=== PATIENT | female | born 1965 | race American Indian/Alaskan Native ===

== ENCOUNTER 2017-02-14 19:20 | Emergency (ER) | payer MEDICARE ==
[2017-02-14 21:32] LABS: Basophils % (Auto) 0.6 % (0.0-1.8); Eosinophils % (Auto) 1.3 % (0.0-4.3); Hematocrit 40.1 % (30.3-42.9); Hemoglobin 13.4 gm/dl (10.1-14.3); Mean Corpuscular HGB Conc 34 % (30-34); Mean Corpuscular Hemoglobin 31 pg (28-32); Mean Corpuscular Volume 91 fl (79-97); Platelet Count 225 K/mm3 (140-440); Red Cell Distribution Width 13.7 % (13.2-15.2); White Blood Count 4.1 K/mm3 (4.5-11.0)
[2017-02-14 21:43] LABS: BUN/Creatinine Ratio 28; Blood Urea Nitrogen 14 mg/dL (7-17); Calcium 9.8 mg/dL (8.4-10.2); Carbon Dioxide 33 mmol/L (22-30); Creatine Kinase 53 units/L (30-135); Glucose 99 mg/dL (65-100)
[2017-02-14 21:43] LABS: Bilirubin,Urine SM (Negative); Blood,Urine NEG (Negative); Ketones,Urine TR mg/dL (Negative); Leukocyte Esterase,Urine TR (Negative); Mucus,Urine 3+ /HPF; Nitrite,Urine NEG (Negative)
[2017-02-14 21:44] LABS: Anion Gap 16 mmol/L; Chloride 96.8 mmol/L (98-107); Potassium 3.5 mmol/L (3.6-5.0); Sodium 142 mmol/L (137-145)
[2017-02-15 03:35] VITALS: BP 104/75
== END 2017-02-14 21:17 | disposition left against medical advice (07) ==
LOC: ED 19:20
DX: R42 Dizziness and giddiness (principal); Z53.21 Procedure and treatment not carried out due to patient leaving prior to being seen by health care provider
CPT/HCPCS: 36415; 80048; 81001; 82550; 84484; 85025